=== PATIENT | male | born 1995 | race Caucasian/White ===

== ENCOUNTER 2019-06-30 16:28 | Emergency (ER) | payer OTHER, SELFPAY ==
[2019-06-30 16:34] VITALS: BP 135/78; PULSE 64; RESP 14; TEMP 36.6; O2SAT 100; BMI 22.3
--- NOTE | 2019-06-30 16:40 | ED.NAVMDI ---
HPI - Nausea/Vomiting/Diarrhea <KATLIN Dubose - Last Filed: 06/30/19 18:56> General Chief complaint: Nausea/Vomiting/Diarrhea Stated complaint: Nausea Time Seen by Provider: 06/30/19 16:31 Source: patient Mode of arrival: Ambulatory Limitations: no limitations History of Present Illness HPI Narrative: The patient is a 23-year-old male current everyday smoker who denies pertinent medical history presents with a chief complaint of nausea. He had an episode of diarrhea yesterday, denies any fevers but complains of muscle aches and chills. He has not vomited. He states he has not had an appetite, tried to eat [place] this morning to see if that would help him feel better and did not. Denies any dysuria urgency or frequency. A took Imodium after his episode of loose stools yesterday and he has not any further diarrhea. He denies any previous abdominal surgery or abdominal history. Related Data Previous Rx's Medication Instructions Recorded ondansetron 4 mg PO Q6H PRN #14 tab 06/30/19 Allergies Allergy/AdvReac Type Severity Reaction Status Date / Time No Known Drug Allergies Allergy Verified 06/30/19 16:34 Review of Systems <KATLIN Dubose - Last Filed: 06/30/19 18:56> Review of Systems Narrative: GENERAL: See HPI HEENT: Denies sinus pain, ear pain, sore throat, difficulty swallowing, dizziness. RESPIRATORY: Denies dyspnea, cough, wheezing, hemoptysis, sputum. CARDIOVASCULAR: Denies chest pain, palpitations, orthopnea, edema, GASTROINTESTINAL: See HPI : Denies dysuria, frequency, incontinence, hematuria, urinary retention. MUSCULOSKELETAL: denies weakness, joint pain, or bony pain SKIN: Denies rash, skin lesions, or other NEUROLOGIC: Denies weakness, headache, numbness, change in speech, confusion, seizures, incoordination. PSYCHIATRIC: No concerning psychosocial issues. 12 point review of systems is negative except for those stated above Patient History <TONYA Dubose - Last Filed: 06/30/19 18:56> Social History Smoking Status: Current every day smoker Smoking Status: Current every day smoker alcohol intake frequency: holidays/special occasions only Substance Use Type: does not use Exam <TONYA Dubose - Last Filed: 06/30/19 18:56> Narrative Exam Narrative: GENERAL: This is a well-nourished, well-developed patient, in no acute distress HEAD: Atraumatic. Normocephalic. No temporal or scalp tenderness. EYES: Pupils equal round and reactive. Extraocular motions intact. No scleral icterus. No injection or drainage. ENT: Nose without bleeding, purulent drainage or septal hematoma. Throat without erythema, tonsillar hypertrophy or exudate. Uvula midline. Airway patent. NECK: Trachea midline. No JVD or lymphadenopathy. Supple, nontender, no meningeal signs. CARDIOVASCULAR: Regular rate and rhythm RESPIRATORY: Clear to auscultation. Breath sounds equal bilaterally. No wheezes, rales, or rhonchi. No cough. No increased respiratory effort. GASTROINTESTINAL: Abdomen soft, diffusely tender with pain to palpation of left lower quadrant. Active bowel sounds all 4 quadrants. EXTREMITIES: No clubbing, cyanosis, or edema. No joint tenderness, effusion, or edema noted. BACK: Nontender without deformity or crepitance. No flank tenderness. NEURO: AOx3. SKIN: No rash or erythema on visible skin Initial Vital Signs Initial Vital Signs: Vital Signs Temperature 97.9 F 06/30/19 16:34 Pulse Rate 64 06/30/19 16:34 Respiratory Rate 14 06/30/19 16:34 Blood Pressure 135/78 06/30/19 16:34 Pulse Oximetry 100 06/30/19 16:34 <Regan Potter DO - Last Filed: 07/01/19 09:01> Initial Vital Signs Initial Vital Signs: Vital Signs Temperature 97.9 F 06/30/19 16:34 Pulse Rate 64 06/30/19 16:34 Respiratory Rate 14 06/30/19 16:34 Blood Pressure 135/78 06/30/19 16:34 Pulse Oximetry 100 06/30/19 16:34 Course <KATLIN Dubose - Last Filed: 06/30/19 18:56> Orders Ordered: Discontinued Medications Sodium Chloride (Normal Saline 0.9%) 1,000 mls @ 1,000 mls/hr IV BOLUS ONE Stop: 06/30/19 17:36 Last Infusion: 06/30/19 18:03 Dose: 0 mls/hr Documented by: Admin: 06/30/19 16:53 Dose: 1,000 mls/hr Documented by: TEJAS Ondansetron HCl (Zofran) 4 mg IV NOW ONE Stop: 06/30/19 16:38 Last Admin: 06/30/19 16:53 Dose: 4 mg Documented by: TEJAS Vital Signs Vital signs: Vital Signs - 8 hr 06/30/19 16:34 06/30/19 18:00 06/30/19 18:28 Temperature 97.9 F Pulse Rate 64 56 L 52 L Respiratory Rate 14 14 16 Blood Pressure 135/78 Blood Pressure [Right Arm] 110/63 103/60 Pulse Oximetry 100 100 99 <Regan Potter DO - Last Filed: 07/01/19 09:01> Orders Ordered: Discontinued Medications Sodium Chloride (Normal Saline 0.9%) 1,000 mls @ 1,000 mls/hr IV BOLUS ONE Stop: 06/30/19 17:36 Last Infusion: 06/30/19 18:03 Dose: 0 mls/hr Documented by: Admin: 06/30/19 16:53 Dose: 1,000 mls/hr Documented by: TEJAS Ondansetron HCl (Zofran) 4 mg IV NOW ONE Stop: 06/30/19 16:38 Last Admin: 06/30/19 16:53 Dose: 4 mg Documented by: TEJAS Vital Signs Vital signs: Vital Signs - 8 hr 06/30/19 16:34 06/30/19 18:00 06/30/19 18:28 Temperature 97.9 F Pulse Rate 64 56 L 52 L Respiratory Rate 14 14 16 Blood Pressure 135/78 Blood Pressure [Right Arm] 110/63 103/60 Pulse Oximetry 100 100 99 MDM - Nausea/Vomiting/Diarrhea <KATLIN Dubose - Last Filed: 06/30/19 18:56> Lab Data Result diagrams: 06/30/19 16:43 06/30/19 16:43 Labs: Lab Results 06/30/19 06/30/19 Range/Units 16:43 16:43 WBC 8.0 (4.5-11.0) X10^3/uL RBC 5.33 (4.5-5.9) X10^6/uL Hgb 15.7 (13.5-17.5) g/dL Hct 46.0 (41-53) % MCV 86.3 (80-100) fL MCH 29.4 (26-34) PG MCHC 34.1 (30-36) % RDW 12.9 (11.6-14.8) % Plt Count 172 (150-400) X10^3/uL Neut % (Auto) 59.9 (50-75) % Lymph % (Auto) 30.2 (25-40) % [place] % (Auto) 6.7 (3-14) % Eos % (Auto) 2.5 (2-4) % Baso % (Auto) 0.7 (0-2) % Neut # (Auto) 4800 (1318-0483) /uL Lymph # (Auto) 2400 (6872-9305) /uL [place] # (Auto) 500 (0-900) /uL Eos # (Auto) 200 (0-450) /uL Baso # (Auto) 100 (0-100) /uL Sodium 139 (137-145) mmol/L Potassium 4.1 (3.4-5.1) mmol/L Chloride 103 (98-107) mmol/L Carbon Dioxide 29 (22-32) mmol/L BUN 14 (9-20) mg/dL Creatinine 0.88 (0.66-1.25) mg/dL Estimated GFR > 60.0 (>60) mL/min BUN/Creatinine Ratio 15.9 (6-22) Glucose 92 (70-100) mg/dL Calcium 9.6 (8.4-10.2) mg/dL Total Bilirubin 1.0 (0.2-1.3) mg/dL AST 19 (17-59) IU/L ALT 11 (<50) IU/L Alkaline Phosphatase 76 (38-126) U/L Total Protein 8.0 (6.3-8.2) g/dL Albumin 4.7 (3.5-5.0) g/dL Globulin 3.3 (1.7-4.1) g/dL Albumin/Globulin Ratio 1.4 (1.0-2.8) Amylase 60 (30-110) U/L Lipase 46 (23-300) U/L Urine Dip Bedside Urine Glucose Negative Bedside Urine Bilirubin - Negative Bedside Urine Ketone - Negative Urine Specific [place] 1.020 Bedside Urine Occult Blood - Negative Bedside Urine pH 7.0 Bedside Urine Protein +/- 15 Bedside Urine Urobilinogen +/- 1mg Bedside Urine Nitrite - Negative Bedside Urine Leukocytes - Negative Esterase MDM Narrative Medical decision making narrative: The patient is a 23-year-old male who presents with a chief complaint of nausea with no vomiting and diffuse abdominal pain. On re-evaluation he has no abdominal pain, no abdominal pain to palpation of all 4 quadrants. His lab work is grossly normal, no leukocytosis, he is afebrile in the emergency department. He is able to tolerate p.o. fluids and feels much improved. We will hold off on imaging at this point. I discussed strict return precautions of abdominal pain with fever, and inability keep down fluids, any acute concerns. Encouraged follow-up with primary care provider next few days. Patient has no questions or concerns upon discharge and states understanding return precautions as well as follow-up care. <Regan Potter, DO - Last Filed: 07/01/19 09:01> Lab Data Labs: Lab Results 06/30/19 06/30/19 Range/Units 16:43 16:43 WBC 8.0 (4.5-11.0) X10^3/uL RBC 5.33 (4.5-5.9) X10^6/uL Hgb 15.7 (13.5-17.5) g/dL Hct 46.0 (41-53) % MCV 86.3 (80-100) fL MCH 29.4 (26-34) PG MCHC 34.1 (30-36) % RDW 12.9 (11.6-14.8) % Plt Count 172 (150-400) X10^3/uL Neut % (Auto) 59.9 (50-75) % Lymph % (Auto) 30.2 (25-40) % [place] % (Auto) 6.7 (3-14) % Eos % (Auto) 2.5 (2-4) % Baso % (Auto) 0.7 (0-2) % Neut # (Auto) 4800 (4433-5431) /uL Lymph # (Auto) 2400 (7373-6332) /uL [place] # (Auto) 500 (0-900) /uL Eos # (Auto) 200 (0-450) /uL Baso # (Auto) 100 (0-100) /uL Sodium 139 (137-145) mmol/L Potassium 4.1 (3.4-5.1) mmol/L Chloride 103 (98-107) mmol/L Carbon Dioxide 29 (22-32) mmol/L BUN 14 (9-20) mg/dL Creatinine 0.88 (0.66-1.25) mg/dL Estimated GFR > 60.0 (>60) mL/min BUN/Creatinine Ratio 15.9 (6-22) Glucose 92 (70-100) mg/dL Calcium 9.6 (8.4-10.2) mg/dL Total Bilirubin 1.0 (0.2-1.3) mg/dL AST 19 (17-59) IU/L ALT 11 (<50) IU/L Alkaline Phosphatase 76 (38-126) U/L Total Protein 8.0 (6.3-8.2) g/dL Albumin 4.7 (3.5-5.0) g/dL Globulin 3.3 (1.7-4.1) g/dL Albumin/Globulin Ratio 1.4 (1.0-2.8) Amylase 60 (30-110) U/L Lipase 46 (23-300) U/L Urine Dip Bedside Urine Glucose Negative Bedside Urine Bilirubin - Negative Bedside Urine Ketone - Negative Urine Specific [place] 1.020 Bedside Urine Occult Blood - Negative Bedside Urine pH 7.0 Bedside Urine Protein +/- 15 Bedside Urine Urobilinogen +/- 1mg Bedside Urine Nitrite - Negative Bedside Urine Leukocytes - Negative Esterase Discharge Plan Departure Patient Disposition: Home Clinical Impression: Nausea Abdominal pain Qualifiers: Abdominal location: generalized Qualified Code(s): R10.84 - Generalized abdominal pain Discharge Date/Time: 06/30/19 18:40 Instructions: DI for Abdominal Pain-Adult, DI for Nausea -- Adult Activity Restrictions/Additional Instructions: Head thank you for trusting us with your care today. Your lab work came back with no acute findings any feel improved after nausea medications. I sent a prescription of Zofran for nausea to [facility] in [place]. Please come back to the emergency department for any acute concerns such as abdominal pain with fever, inability keep down fluids etcetera Prescriptions: New ondansetron 4 mg tablet,disintegrating 4 mg PO Q6H PRN (Reason: nausea and vomiting) Qty: 14 RF: 0 Referrals: [facility] [Provider Group] ED Sign-out <KATLIN Dubose - Last Filed: 06/30/19 18:56> Cosign ED Attending Gen Attestation: I was immediately available in the department for consultation. This documentation has been reviewed and I agree with assessment and plan. Supervised by KATLIN Dubose <Regan Potter DO - Last Filed: 07/01/19 09:01> Cosign ED Attending Gen Attestation: I was immediately available in the department for consultation. This documentation has been reviewed and I agree with assessment and plan. Supervised by Regan Potter DO
[2019-06-30 16:53] LABS: Add Manual Diff / Slide Review NO; Basophils Absolute Auto 100 /uL (0-100); Basophils Percent Auto 0.7 % (0-2); Eosinophils Absolute Auto 200 /uL (0-450); Eosinophils Percent Auto 2.5 % (2-4); Hemoglobin 15.7 g/dL (13.5-17.5); Lymphocytes Absolute Auto 2400 /uL (1100-4500); Lymphocytes Percent Auto 30.2 % (25-40); Mean Corpuscular HGB Conc 34.1 % (30-36); Mean Corpuscular Hemoglobin 29.4 PG (26-34); Mean Corpuscular Volume 86.3 fL (80-100); Monocytes Absolute Auto 500 /uL (0-900); Monocytes Percent Auto 6.7 % (3-14); Neutrophils Absolute Auto 4800 /uL (1500-7000); Neutrophils Percent Auto 59.9 % (50-75); Platelet Count 172 X10^3/uL (150-400); Red Blood Cell Count 5.33 X10^6/uL (4.5-5.9); Red Cell Distribution Width 12.9 % (11.6-14.8)
[2019-06-30] MEDS: ONDANSETRON 4 MG/2 ML INJ IV (16:53)
[2019-06-30] MEDS: SODIUM CHLORIDE 0.9% 1,000 ML 1000 ML IV (16:53)
[2019-06-30 17:04] LABS: Alanine Aminotransferase 11 IU/L (<50); Albumin 4.7 g/dL (3.5-5.0); Albumin Globulin Ratio 1.4 (1.0-2.8); Alkaline Phosphatase 76 U/L (38-126); Amylase 60 U/L (30-110); Aspartate Aminotransferase 19 IU/L (17-59); BUN Creatinine Ratio 15.9 (6-22); Blood Urea Nitrogen 14 mg/dL (9-20); Calcium 9.6 mg/dL (8.4-10.2); Carbon Dioxide 29 mmol/L (22-32); Chloride 103 mmol/L (98-107); Estimated Glomerular Filt Rate > 60.0 mL/min (>60); Globulin 3.3 g/dL (1.7-4.1); Glucose 92 mg/dL (70-100); HEMOLYSIS 26 (0-50); Lipase 46 U/L (23-300); Potassium 4.1 mmol/L (3.4-5.1); Sodium 139 mmol/L (137-145)
[2019-06-30 18:00] VITALS: BP 110/63; PULSE 56; RESP 14; O2SAT 100
[2019-06-30 18:28] VITALS: BP 103/60; PULSE 52; RESP 16; O2SAT 99
== END 2019-06-30 18:40 | disposition home or self-care (01) ==
PROVIDERS: Emergency Provider Nurse Practitioner Family
DX: R10.84 Generalized abdominal pain (principal); R11.10 Vomiting, unspecified
CPT/HCPCS: 36415; 80053; 81003; 82150; 83690; 85025; 96361; 96374; 99284; J2405

== ENCOUNTER → 2020-07-13 14:52 | Outpatient (CLI) | payer OTHER, SELFPAY ==
--- NOTE | 2020-07-13 14:53 | DI.MRI.S_ITS ---
PROCEDURE: MR SHOULDER RT WO CON INDICATIONS: RIGHT SHOULDER PAIN TECHNIQUE: Noncontrast oblique coronal T2 fast spin echo with fat saturation, oblique sagittal T1 spin echo and T2 fast spin echo with fat saturation, axial T1 spin echo and T2 fast spin echo with fat saturation through the shoulder. COMPARISON: None. FINDINGS: Image quality: Excellent. Rotator cuff: Tendinosis and low-grade articular surface partial-thickness tear involving distal supraspinatus at its insertion on the humeral head is seen. Distal infraspinatus and subscapularis tendinosis is also seen. No full-thickness rotator cuff tendon rupture. Sagittal images demonstrate no gross muscle atrophy. Bones and bursae: There is marrow edema involving lateral portion of humeral head extending to involve greater tuberosity near rotator cuff tendon insertion. Cortical irregularity involving posterior lateral superior humeral head is seen consistent with Hill-Sachs fracture. No corresponding [place] fracture is seen. No acromioclavicular joint degeneration. The acromion demonstrates conventional anatomy, without an os acromiale. No pathologic subacromial-subdeltoid or subcoracoid bursal fluid is present. Capsule and soft tissues: There is no superior labral tear. Thickened tear inferior labrum is seen, no definite deformity or fluid signal is seen within anterior inferior labrum to suggest [place] lesion. The long head of the biceps tendinosis is seen. The rotator interval appears normal, without fibrosis. The coracohumeral ligament is normal in thickness. IMPRESSION: 1. Marrow edema and cortical deformity involving posterior lateral portion of humeral head extending to involve base of greater tuberosity suggestive of a Hill-Sachs fracture. No corresponding [place] fracture. 2. Distal supraspinatus tendinosis and low-grade articular surface partial-thickness tear at its humeral head insertion. Distal infraspinatus and subscapularis tendinosis. No full-thickness rotator cuff tendon rupture. 3. Thickened anterior inferior labrum without definite focal labral tear in the absence of intra-articular contrast. Rest of the labrum is intact. 4. Proximal intra-articular portion of long head of biceps tendinosis. Dictated by: Ozzy Fernandez M.D. on 07/15/2020 at 8:43 Approved by: Ozzy Fernandez M.D. on 07/15/2020 at 8:55
== END ==
PROVIDERS: Referring Provider Family Medicine; Visit Provider Family Medicine
DX: M25.511 Pain in right shoulder (principal)
CPT/HCPCS: 73221